=== PATIENT | female | born 1995 | race Two or more races ===

== ENCOUNTER 2024-05-09 12:12 | Emergency (ER) | payer OTHER ==
[~2024-05-09] VITALS: Ht 165.1 cm; Wt 71.2 kg
[2024-05-09] MEDS ORDERED: LEVOTHYROXINE25 MCG PO (12:20)
[2024-05-09 13:26] LABS: HEMATOCRIT 38.4 % (36.0-45.00); MEAN CELL VOLUME 87.8 fL (80.00-100.00); MEAN CORPUSCULAR HEMOGLOBIN 29.8 pg (27.00-32.0); MEAN CORPUSCULAR HGB CONC 33.9 g/dl (32.0-36.0); PLATELET COUNT 338 K/uL (150-450); RED BLOOD COUNT 4.38 M/uL (4.00-6.00); RED CELL DISTRIBUTION WIDTH 14.7 % (11.5-14.5)
[2024-05-09 15:32] LABS: PH,URINE 7.5 (5.0-8.0); URINE APPEARANCE Cloudy; URINE BILIRRUBIN Negative (NEGATIVE); URINE BLOOD Large; URINE COLOR Yellow; URINE GLUCOSE Negative (NEGATIVE); URINE KETONE Negative (NEGATIVE); URINE LEUKOCYTE Negative; URINE NITRATE Negative; URINE PROTEIN Trace (NEGATIVE)
[2024-05-09 15:36] LABS: URINE BACTERIA 2906.9 uL (0.0-1933); URINE EPITHELIAL CELLS 55.4 uL (0.0-38.8); URINE RBC 23.4 uL (0.0-20.8); URINE WBC 25.1 uL (0.0-23.2)
== END 2024-05-09 17:18 | disposition home or self-care (01) ==
LOC: ER 12:14
PROVIDERS: Emergency Medicine
DX: O20.8 Other hemorrhage in early pregnancy (principal); E03.8 Other specified hypothyroidism

== ENCOUNTER 2024-05-17 07:53 | Emergency (ER) | payer OTHER ==
[~2024-05-17] VITALS: Ht 165.1 cm; Wt 71.2 kg
[~2024-05-17 07:53] MED LIST: LEVOTHYROXINE25 MCG PO
[2024-05-17] MEDS ORDERED: PRENATA CHEWAB1 EACH (08:02)
[2024-05-17 08:35] LABS: HEMATOCRIT 37.5 % (36.0-45.00); HEMOGLOBIN 12.5 g/dL (12.0-15.00); MEAN CELL VOLUME 88.8 fL (80.00-100.00); MEAN CORPUSCULAR HEMOGLOBIN 29.6 pg (27.00-32.0); MEAN CORPUSCULAR HGB CONC 33.3 g/dl (32.0-36.0); PLATELET COUNT 310 K/uL (150-450); RED BLOOD COUNT 4.22 M/uL (4.00-6.00); RED CELL DISTRIBUTION WIDTH 14.7 % (11.5-14.5)
[2024-05-17 09:00] LABS: INR 1.01; PARTIAL THROMBOPLASTIN TIME 30.2 SECONDS (22.0-34.0)
[2024-05-17 09:07] LABS: URINE APPEARANCE Cloudy; URINE BILIRRUBIN Negative (NEGATIVE); URINE BLOOD Large; URINE COLOR Yellow; URINE GLUCOSE Negative (NEGATIVE); URINE KETONE 15 (NEGATIVE); URINE LEUKOCYTE Negative; URINE NITRATE Negative; URINE PROTEIN Negative (NEGATIVE)
[2024-05-17 09:08] LABS: URINE BACTERIA 1512.7 uL (0.0-1933); URINE EPITHELIAL CELLS 22.6 uL (0.0-38.8); URINE RBC 13.2 uL (0.0-20.8); URINE WBC 10.7 uL (0.0-23.2)
[2024-05-17 09:14] LABS: URINE CAST 0.44 uL (0.0-1.40)
[2024-05-17 09:28] LABS: CALCIUM 8.5 mg/dL (8.5-10.1); CREATININE SERUM 0.52 mg/dL (0.55-1.02); GFR 138.46; POTASSIUM 3.44 mEq/L (3.5-5.1)
== END 2024-05-17 10:44 | disposition home or self-care (01) ==
LOC: ER 07:55
PROVIDERS: General Practice
DX: O20.8 Other hemorrhage in early pregnancy (principal); Z3A.08 8 weeks gestation of pregnancy

== ENCOUNTER 2024-06-02 14:36 | Emergency (ER) | payer OTHER ==
[~2024-06-02] VITALS: Ht 165.1 cm; Wt 71.2 kg
[~2024-06-02 14:36] MED LIST changes: +PRENATA CHEWAB1 EACH
[2024-06-02 15:05] VITALS: BP 122/75; O2SAT 100
[2024-06-02 16:08] LABS: HEMATOCRIT 37.7 % (36.0-45.00); HEMOGLOBIN 12.5 g/dL (12.0-15.00); MEAN CELL VOLUME 90.3 fL (80.00-100.00); MEAN CORPUSCULAR HEMOGLOBIN 30.1 pg (27.00-32.0); MEAN CORPUSCULAR HGB CONC 33.3 g/dl (32.0-36.0); PLATELET COUNT 316 K/uL (150-450); RED BLOOD COUNT 4.17 M/uL (4.00-6.00); RED CELL DISTRIBUTION WIDTH 14.5 % (11.5-14.5)
[2024-06-02 17:52] LABS: URINE APPEARANCE Clear; URINE BILIRRUBIN Negative (NEGATIVE); URINE BLOOD Small; URINE COLOR Yellow; URINE GLUCOSE Negative (NEGATIVE); URINE KETONE Negative (NEGATIVE); URINE LEUKOCYTE Negative; URINE NITRATE Negative; URINE PROTEIN Negative (NEGATIVE); URINE UROBILINOGEN 0.2 E.U./dl
[2024-06-02 17:55] LABS: URINE BACTERIA 2761.3 uL (0.0-1933); URINE EPITHELIAL CELLS 49.3 uL (0.0-38.8); URINE RBC 5.4 uL (0.0-20.8); URINE WBC 26.1 uL (0.0-23.2)
== END 2024-06-02 18:26 | disposition home or self-care (01) ==
LOC: ER 14:38
PROVIDERS: Emergency Medicine
DX: O20.9 Hemorrhage in early pregnancy, unspecified (principal); Z3A.12 12 weeks gestation of pregnancy

== ENCOUNTER 2024-07-08 14:05 | Emergency (ER) | payer OTHER ==
[~2024-07-08] VITALS: Ht 157.5 cm; Wt 71.7 kg
[2024-07-08] MEDS ORDERED: ACETAMINOPHEN 500 MG GEL..CAP PO ONE ×2 (16:04→16:15)
[2024-07-08 16:29] LABS: HEMATOCRIT 38.6 % (36.0-45.00); MEAN CELL VOLUME 90.3 fL (80.00-100.00); MEAN CORPUSCULAR HEMOGLOBIN 30.4 pg (27.00-32.0); MEAN CORPUSCULAR HGB CONC 33.7 g/dl (32.0-36.0); PLATELET COUNT 288 K/uL (150-450); RED BLOOD COUNT 4.28 M/uL (4.00-6.00); RED CELL DISTRIBUTION WIDTH 13.8 % (11.5-14.5)
[2024-07-08 17:27] LABS: PH,URINE 7.5 (5.0-8.0); URINE APPEARANCE Clear; URINE BILIRRUBIN Negative (NEGATIVE); URINE BLOOD Negative; URINE COLOR Yellow; URINE GLUCOSE Negative (NEGATIVE); URINE KETONE Trace (NEGATIVE); URINE LEUKOCYTE Negative; URINE NITRATE Negative; URINE PROTEIN Negative (NEGATIVE); URINE UROBILINOGEN 0.2 E.U./dl
[2024-07-08 17:28] LABS: CALCIUM 9.1 mg/dL (8.5-10.1); CREATININE SERUM 0.54 mg/dL (0.55-1.02); GFR 132.56; POTASSIUM 4.06 mEq/L (3.5-5.1)
[2024-07-08 17:31] LABS: URINE BACTERIA 1654.7 uL (0.0-1933); URINE EPITHELIAL CELLS 42.4 uL (0.0-38.8); URINE RBC 6.1 uL (0.0-20.8); URINE WBC 16.1 uL (0.0-23.2)
[2024-07-09] MEDS ORDERED: ZITHROMAX TRI-500 MG PO (13:13)
== END 2024-07-09 23:48 | disposition home or self-care (01) ==
LOC: ER 14:08
PROVIDERS: Emergency Medicine
DX: O26.892 Other specified pregnancy related conditions, second trimester (principal); Z3A.15 15 weeks gestation of pregnancy; I47.19 Other supraventricular tachycardia; E05.80 Other thyrotoxicosis without thyrotoxic crisis or storm; Z20.822 Contact with and (suspected) exposure to COVID-19

== ENCOUNTER 2024-07-28 15:13 | Outpatient (CLI) | payer OTHER ==
[~2024-07-28 15:13] MED LIST changes: +ZITHROMAX TRI-500 MG PO
== END 2024-07-28 15:17 | disposition home or self-care (01) ==
LOC: PRENATAL 15:13
PROVIDERS: ATTEND Obstetrics & Gynecology Maternal & Fetal Medicine
DX: O44.00 Complete placenta previa NOS or without hemorrhage, unspecified trimester (principal); O99.280 Endocrine, nutritional and metabolic diseases complicating pregnancy, unspecified trimester; Z3A.19 19 weeks gestation of pregnancy

== ENCOUNTER → 2024-09-25 10:19 | Outpatient (CLI) | payer OTHER | END | disposition home or self-care (01) | LOC: PRENATAL 09-24 18:14 | PROVIDERS: ATTEND Obstetrics & Gynecology Maternal & Fetal Medicine | DX: O26.849 Uterine size-date discrepancy, unspecified trimester (principal); O36.8199 Decreased fetal movements, unspecified trimester, other fetus; O99.280 Endocrine, nutritional and metabolic diseases complicating pregnancy, unspecified trimester; Z3A.27 27 weeks gestation of pregnancy ==

== ENCOUNTER 2024-10-17 14:49 | Outpatient (CLI) | payer OTHER | END 2024-10-17 14:50 | disposition home or self-care (01) | LOC: PRENATAL 14:49 | PROVIDERS: ATTEND Obstetrics & Gynecology Maternal & Fetal Medicine | DX: O26.849 Uterine size-date discrepancy, unspecified trimester (principal); O36.8199 Decreased fetal movements, unspecified trimester, other fetus; O99.280 Endocrine, nutritional and metabolic diseases complicating pregnancy, unspecified trimester; Z3A.28 28 weeks gestation of pregnancy ==

== ENCOUNTER 2024-10-23 13:58 | Outpatient (CLI) | payer OTHER | END 2024-10-23 14:18 | disposition home or self-care (01) | LOC: NST 13:58 | PROVIDERS: ATTEND Specialist | DX: Z3A.32 32 weeks gestation of pregnancy (principal) ==

== ENCOUNTER 2024-11-10 10:10 | Emergency (ER) | payer OTHER ==
[~2024-11-10] VITALS: Ht 165.1 cm; Wt 78.0 kg
[2024-11-10] MEDS ORDERED: 0.9 % SODIUM CHLORIDE 1,000 ML IV ONE (11:30)
[2024-11-10] MEDS ORDERED: ONDANSETRON HCL 2 MG/ML VIAL IV ONE (11:30)
[2024-11-10] MEDS ORDERED: FAMOtidine 10 MG/ML (4ML VIAL) IV ONE (11:30)
[2024-11-10] MEDS ORDERED: CETIRIZINE HCL 5 MG/5 ML ML PO ONE (11:30)
[2024-11-10] MEDS ORDERED: MONTELUKAST SODIUM 10 MG TABLET PO ONE (11:30)
[2024-11-10] MEDS ORDERED: ONDANSETRON HCL 2 MG/ML VIAL ONE (11:44)
[2024-11-10] MEDS ORDERED: FAMOTIDINE/PF 20 MG/2 ML VIAL ONE (11:45)
[2024-11-10] MEDS ORDERED: CETIRIZINE HCL 5MG/5ML BLIST.PACK PO ONE (11:45)
[2024-11-10 12:31] LABS: COVID-19 AG POSITIVE (NEGATIVE); PH,URINE 6.5 (5.0-8.0); URINE APPEARANCE Clear; URINE BILIRRUBIN Negative (NEGATIVE); URINE BLOOD Negative; URINE COLOR Yellow; URINE GLUCOSE Negative (NEGATIVE); URINE KETONE Negative (NEGATIVE); URINE LEUKOCYTE Small; URINE NITRATE Negative; URINE PROTEIN Trace (NEGATIVE)
[2024-11-10 12:35] LABS: URINE BACTERIA 3287.3 uL (0.0-1933); URINE EPITHELIAL CELLS 40.6 uL (0.0-38.8); URINE WBC 64.7 uL (0.0-23.2)
[2024-11-10 12:37] LABS: INFLUENZA A AG NEGATIVE (NEGATIVE); INFLUENZA B AG NEGATIVE (NEGATIVE)
[2024-11-10 12:38] LABS: BASO % 0.3 % (0.1-1.2); EOS # 0.05 (0.04-0.54); EOS % 0.7 % (0.7-7.0); HEMOGLOBIN 12.3 g/dL (11.2-15.7); LYMPH # 1.09 (1.18-3.74); LYMPH % 14.6 % (19.3-53.1); MEAN CORPUSCULAR HEMOGLOBIN 30.8 pg (25.6-32.2); MONO # 0.81 (0.24-0.82); MONO % 10.8 % (4.7-12.5); NEUT # 5.49 (1.56-6.13); NEUT % 73.2 % (34.0-71.1); PLATELET COUNT 249 K/uL (163-369); RED CELL DISTRIBUTION WIDTH 13.3 % (11.6-14.4)
[2024-11-10 12:59] LABS: ALBUMIN 2.9 gm/dL (3.4-5.0); BILIRUBIN TOTAL 0.29 mg/dL (0.3-1.2); CALCIUM 8.5 mg/dL (8.5-10.1); CREATININE SERUM 0.47 mg/dL (0.55-1.02); GFR 154.56; GLOBULINA 4.2 G/DL (2.4-3.5); POTASSIUM 3.4 mEq/L (3.5-5.1); TOTAL PROTEIN 7.1 gm/dL (6.4-8.2)
[2024-11-10 13:15] LABS: URINE CAST 0.29 uL (0.0-1.40)
[2024-11-10] MEDS ORDERED: PEPCID AC20 MG PO (13:52)
[2024-11-10] MEDS ORDERED: SINGULAIR10 MG PO (13:52)
[2024-11-10] MEDS ORDERED: AMOX1TAB5 PO (13:52)
== END 2024-11-10 14:31 | disposition home or self-care (01) ==
LOC: ER 10:10
PROVIDERS: General Practice
DX: Z34.90 Encounter for supervision of normal pregnancy, unspecified, unspecified trimester (principal); Z3A.35 35 weeks gestation of pregnancy; U07.1 COVID-19; R19.7 Diarrhea, unspecified; E03.8 Other specified hypothyroidism

== ENCOUNTER → 2024-11-20 10:34 | Outpatient (CLI) | payer OTHER ==
[~2024-11-20 10:34] MED LIST changes: +AMOX1TAB5 PO; +PEPCID AC20 MG PO; +SINGULAIR10 MG PO
== END | disposition home or self-care (01) ==
LOC: PRENATAL 10:34
PROVIDERS: ATTEND Obstetrics & Gynecology Maternal & Fetal Medicine
DX: O26.849 Uterine size-date discrepancy, unspecified trimester (principal); O36.8199 Decreased fetal movements, unspecified trimester, other fetus; O99.280 Endocrine, nutritional and metabolic diseases complicating pregnancy, unspecified trimester; O36.5990 Maternal care for other known or suspected poor fetal growth, unspecified trimester, not applicable or unspecified; O32.9XX0 Maternal care for malpresentation of fetus, unspecified, not applicable or unspecified; Z3A.33 33 weeks gestation of pregnancy

== ENCOUNTER 2024-12-04 09:45 | Inpatient (IN) | payer OTHER ==
[~2024-12-04] VITALS: Ht 165.1 cm; Wt 2.7 kg
[2024-12-04 11:19] LABS: BASO % 0.3 % (0.1-1.2); EOS # 0.05 (0.04-0.54); EOS % 0.6 % (0.7-7.0); LYMPH # 2.02 (1.18-3.74); LYMPH % 22.7 % (19.3-53.1); MEAN PLATELET VOLUME 10.50 fl (9.4-12.4); MONO # 0.70 (0.24-0.82); MONO % 7.9 % (4.7-12.5); NEUT # 6.03 (1.56-6.13); NEUT % 67.9 % (34.0-71.1); RED CELL DISTRIBUTION WIDTH 13.1 % (11.6-14.4)
[2024-12-04 11:22] LABS: URINE APPEARANCE Clear; URINE BILIRRUBIN Negative (NEGATIVE); URINE BLOOD Negative; URINE COLOR Yellow; URINE GLUCOSE Negative (NEGATIVE); URINE KETONE Negative (NEGATIVE); URINE LEUKOCYTE Large; URINE NITRATE Negative; URINE PROTEIN Negative (NEGATIVE); URINE UROBILINOGEN 0.2 E.U./dl
[2024-12-04 11:26] LABS: URINE BACTERIA 1840.5 uL (0.0-1933); URINE EPITHELIAL CELLS 44.9 uL (0.0-38.8); URINE WBC 184.6 uL (0.0-23.2)
[2024-12-04 11:37] LABS: URINE CAST 0.14 uL (0.0-1.40); URINE RBC 1.7 uL (0.0-20.8)
[2024-12-04 11:57] LABS: INR < 0.93
[2024-12-04 12:04] LABS: ALT/SGPT 19.0 U/L (12-78); AST/SGOT 17.0 U/L (15-37); BILIRUBIN TOTAL 0.15 mg/dL (0.3-1.2); BUN CREA RATIO 11.0 (7.0-25.0); CREATININE SERUM 0.54 mg/dL (0.55-1.02); GFR 131.68; GLOBULINA 4.1 G/DL (2.4-3.5); GLUCOSE FASTING 82.0 mg/dL (65-100); OSMOLALITY SERUM 276.0 MOSM/KG (275-295)
[2024-12-04 12:22] LABS: URINE YEAST MODERATE /hpf
[2024-12-05 05:17] VITALS: BP 120/81
[2024-12-05] MEDS ORDERED: CEFAZOLIN SODIUM 1,000 MG VIAL IV ONE (07:55)
[2024-12-05] MEDS ORDERED: OXYTOCIN 20 UNITS/1000ML RL PIGGYBAG IV ONE (08:40)
[2024-12-05] MEDS ORDERED: MORPHINE SULFATE 4 MG/ML CARTRIDGE IV PRN (09:15)
[2024-12-05] MEDS ORDERED: RINGERS SOLUTION,LACTATED 1,000 ML IV SCH (09:15)
[2024-12-05] MEDS ORDERED: ERYTHROMYCIN BASE OPHT 1GM EACH TUBE OP SCH (10:15)
[2024-12-05] MEDS ORDERED: OXYTOCIN 10 UNITS/ML VIAL IV ONE (10:15)
[2024-12-05] MEDS ORDERED: MORPHINE SULFATE 4 MG/ML VIAL IV ONE (11:20)
[2024-12-05 12:10] VITALS: BP 114/74
[2024-12-05] MEDS ORDERED: CEFAZOLIN SODIUM 1,000 MG VIAL IV SCH (14:00)
[2024-12-05 17:00] VITALS: BP 137/82
[2024-12-06 00:40] LABS: BASO % 0.2 % (0.1-1.2); EOS # 0.03 (0.04-0.54); EOS % 0.3 % (0.7-7.0); LYMPH # 1.64 (1.18-3.74); LYMPH % 17.6 % (19.3-53.1); MEAN PLATELET VOLUME 10.20 fl (9.4-12.4); MONO # 0.65 (0.24-0.82); MONO % 7.0 % (4.7-12.5); NEUT # 6.95 (1.56-6.13); NEUT % 74.5 % (34.0-71.1); RED CELL DISTRIBUTION WIDTH 12.9 % (11.6-14.4)
[2024-12-06 00:55] VITALS: BP 115/70
[2024-12-06] MEDS ORDERED: LEVOTHYROXINE SODIUM 50 MCG TABLET PO SCH (06:00)
[2024-12-06 08:33] VITALS: BP 116/75
[2024-12-06] MEDS ORDERED: ACETAMINOPHEN 325 MG TABLET PO PRN (12:00)
[2024-12-06 12:30] VITALS: BP 118/82
[2024-12-06 15:53] VITALS: BP 132/86
[2024-12-06 23:36] VITALS: BP 107/67
[2024-12-07 08:00] VITALS: BP 108/73
[2024-12-07 17:08] VITALS: BP 116/77
[2024-12-07] MEDS ORDERED: BISACODYL 10 MG/SUPP.RECT SUPP.RECT RECTAL ONE (20:00)
[2024-12-08 00:02] VITALS: BP 108/71
[2024-12-08] MEDS ORDERED: IBUPROFEN800 MG PO (08:12)
[2024-12-08 09:05] VITALS: BP 117/79
== END 2024-12-08 12:55 | disposition home or self-care (01) | DRG 788 ==
LOC: LDR 12-05 07:00 → OB/GYN 12-05 08:55 → O/R 12-05 08:55 → OB/GYN 12-05 09:11 → LDR 12-05 09:44 → OB/GYN 12-08 12:55
PROVIDERS: ADMIT Specialist; ATTEND Specialist
PROC: 4A1HXCZ Monitoring of Products of Conception, Cardiac Rate, External Approach (ICD-10-PCS; 2024-12-05)
PROC: 10D00Z1 Extraction of Products of Conception, Low, Open Approach (ICD-10-PCS; principal; 2024-12-05 07:00)
DX: O32.1XX0 Maternal care for breech presentation, not applicable or unspecified (principal); O99.284 Endocrine, nutritional and metabolic diseases complicating childbirth; E03.9 Hypothyroidism, unspecified; O36.5930 Maternal care for other known or suspected poor fetal growth, third trimester, not applicable or unspecified; Z3A.38 38 weeks gestation of pregnancy; Z37.0 Single live birth